=== PATIENT | female | born 1985 | race Caucasian/White ===

== ENCOUNTER 2021-03-11 11:38 | Emergency (ER) | payer MEDICAID, SELFPAY ==
[2021-03-11 11:39] VITALS: BP 126/84; PULSE 87; RESP 18; TEMP 36.9; O2SAT 97; BMI 31.6
--- NOTE | 2021-03-11 12:07 | CT_ITS ---
STUDY: CT SOFT TISSUE NECK WITH CONTRAST REASON FOR EXAM: Female, 35 years old. Post op pain -- and quot;lump in throat and quot; s/p partial thyroidectomy RADIATION DOSAGE (If Supplied By Facility): CTDIvol = ( 16.60 ) mGy, DLP = ( 543.36 ) mGycm TECHNIQUE: The patient was scanned in a multi-detector CT scanner. High resolution transaxial imaging was performed following intravenous administration of IV 75mL Isovue-370. Sagittal and coronal images were reconstructed. Individualized dose optimization techniques were used for this CT. COMPARISON: None. FINDINGS: Normal bilateral parotid glands. Normal bilateral internetworking technician spaces. Normal bilateral parapharyngeal spaces. Normal bilateral carotid spaces. Normal bilateral sublingual and submandibular glands and spaces. Normal visualized nasopharynx. Normal retropharyngeal space. Normal perivertebral space. Normal visualized bilateral faucial tonsils. The visualized tongue, tongue base and oropharynx are normal. The visualized cervical lymph nodes (levels I-) are within normal size limits, and maintain normal morphology. There is no demonstrated solid or cystic mass lesion. There is no abnormal contrast enhancement. Normal epiglottis, bilateral vallecula and hypopharynx. The pre-epiglottic and paraglottic adipose spaces are normal. Normal visualized bilateral piriform sinuses, aryepiglottic folds, vocal cords, and arytenoid-cricoid articulations. Normal subglottic trachea. The patient is status post resection of the right lobe of the thyroid gland. The left lobe and the left side of the isthmus is unremarkable. Minimal residual postoperative soft tissue changes in the subcutaneous tissues. No evidence of a abnormal fluid collection. A small amount of air is seen within the bilateral tonsils. This may represent an incidental finding Normal visualized pulmonary apices. Normal visualized paranasal sinuses. Normal visualized cervical spine. CT/Soft Tissue Neck WITH Contrast IMPRESSION: No postoperative complication is seen. Electronically Signed: Mario Callahan MD at 13:12 EST , Service support ,
--- NOTE | 2021-03-11 12:13 | EX.ED.DYSGE1 ---
HPI History of Present Illness Chief Complaint: General Illness Informant: patient Onset/Context/Timing Onset: Days (3 days) Context: Gradual Onset Current Severity: Mild Maximum Severity: Mild Narrative Narrative: Patient presents secondary to cough and sensation of lump in her throat. She had a partial thyroidectomy on February 18. She states she has a sensation of lump in her throat that seems to come and go. She is not sure if it is related to her surgery. She had subjective fever 1 night recently and has had cough with no sputum production. Patient advises me that one member of her home did test positive for Covid this morning. PFSH PFSH Medical History no medical history no medical history Home Medications vitamin B complex [B Complex] 1 cap PO DAILY 03/11/21 [History Last Taken Unknown] zinc 15 mg PO DAILY 03/11/21 [History Last Taken Unknown] Allergy/AdvReac Type Severity Reaction Status Date / Time acetaminophen [From Vicodin] Allergy Nausea Verified 03/11/21 11:51 cefdinir Allergy Nausea Verified 03/11/21 11:51 hydrocodone [From Vicodin] Allergy Nausea Verified 03/11/21 11:51 Surgical History History of partial thyroidectomy Social History Smoking Status: Never smoker ROS ROS ED Constitutional Constitutional ED: Reports fever(s) and subjective; Denies chills Eyes Eyes: Denies change in vision ENT ENT ED: Reports other Details: Lump in throat ; Denies sore throat Cardiovascular Cardiovascular: Denies chest pain Respiratory/Chest Respiratory/Chest: Reports cough; Denies dyspnea or sputum Gastrointestinal Gastrointestinal: Denies abdominal pain, diarrhea, nausea or vomiting Genitourinary Genitourinary ED: Denies dysuria Musculoskeletal Musculoskeletal: Reports myalgias; Denies back pain Integumentary Denies rash Neurologic Neurologic: Denies headache(s) or weakness Allergic/Immunologic Allergic/Immunologic ED: Denies urticaria EXAM Physical Exam Const Vital Signs: 03/11/21 11:39 03/11/21 11:53 Temperature 98.4 F Temperature Source Temporal Pulse Rate 87 Respiratory Rate 18 Respiratory Effort Normal Non-Labored Respiratory Pattern Normal Blood Pressure 126/84 H Blood Pressure Mean 98 Pulse Ox 97 Oxygen Delivery Method Room Air Positive well nourished and well developed General Appearance ED: well developed HEENT Reports moist mucous membranes Eyes PERRL and EOMs intact bilaterally Neck supple Chest Wall inspection of chest normal and palpation of chest normal Resp normal respiratory effort and clear to auscultation bilaterally Cardio regular rate and regular rhythm GI normal to inspection, nondistended, normoactive bowel sounds and non-tender Palpation: soft Extremity normal to inspection Neuro oriented x3 Sensorium / Orientation: alert Psych mental status grossly normal Skin no rashes or lesions noted MDM MDM MDM Narrative Medical decision making narrative: Patient had a BMP obtained and a CT neck with IV contrast secondary to her postop pain. Rapid Covid test and chest x-ray ordered. Lab Data Attestation: I reviewed the patient's lab results. Labs: Laboratory Results - last 24 hr 03/11/21 12:35 Sodium 138 Potassium 4.0 Chloride 108 H Carbon Dioxide 26.0 Anion Gap 4 L BUN 12 Creatinine 0.78 Estim Creat Clear Calc 89.72 Est GFR (MDRD) Af Amer 108 Est GFR (MDRD) Non-Af 89 BUN/Creatinine Ratio 15.5 Glucose 91 Calcium 9.0 Rapid Covid: Positive Radiography Chest X-Ray - ED: 1 View, Read by ED Physician, Normal, Heart, Lungs and Mediastinum Diagnostic Testing: Clinical Impression(s) from Imaging Studies Soft Tissue Neck CT 03/11/21 12:07 IMPRESSION: No postoperative complication is seen. Electronically Signed: Mario Callahan MD at 13:12 EST , Service support , Chest X-Ray 03/11/21 13:06 IMPRESSION: Normal x-ray examination of the chest. Electronically Signed: Mario Callahan MD at 13:33 EST , Service support , Treatment and Re-Evaluation Comments:: CT scan of the neck reveals no postoperative complications. Chest x-ray is clear per my interpretation. Covid test is positive. I did discuss with the patient potentially obtaining monoclonal antibody treatment. I did confirm that monoclonal antibody treatment is safe while breast-feeding. Monoclonal's will be ordered for the patient. The following information was communicated to the patient or caregiver: Monoclonal antibody infusion is not an FDA approved drug. The FDA has authorized the emergency use of monoclonal antibody therapy. The patient had the option to refuse or accept treatment with monoclonal antibody therapy. The patient was informed that the number of people treated with monoclonal antibody therapy at this time is small. The potential benefits and the potential risks of monoclonal antibody therapy are not fully known. Potential benefits of monoclonal antibody include a reduced risk of progressing to severe COVID-19 infection. Potential risks or side effects of monoclonal antibody therapy include allergic reactions, side effects from injection including brief pain, bleeding, bruising of the skin, soreness, swelling, possible infection at the infusion site. The patient stated understanding of this information communicated and wished to proceed with monoclonal antibody infusion therapy. The patient is appropriate for the Monoclonal Antibody Infusion. The patient states understanding of this information communicated and wishes to proceed with monoclonal antibody infusion therapy. Patient agrees to receive either Balanivimab/Etesvimab or Casirivimab/Imdevimab upon availability. Discharge Plan Triage Chief Complaint: General Illness ED Provider: Michelle Severino Dx/Rx/DC Orders Clinical Impression: COVID-19 Instructions: Coronavirus Disease 2019 (COVID-19): Overview, Coronavirus Disease 2019 (COVID-19): Caring for Yourself or Others Prescriptions: No Action zinc 15 mg Tablet 15 mg PO DAILY RF: 0 vitamin B complex [B Complex] Capsule 1 cap PO DAILY RF: 0 Stand Alone Forms: Monoclonal Antibody Referral Primary Care Provider: Care Physician,No Primary Referrals: Ashly Anne MD [STAFF PHYSICIAN] - As Needed Care Physician,No Primary [Primary Care Provider] - Disposition Disposition: Home, Self Care
[2021-03-11 12:59] LABS: Anion Gap 4 (5-15); BUN 12 mg/dL (7-18); BUN/Creat Ratio 15.5 RATIO (10-20); Chloride 108 mmol/L (98-107); Creatinine, Serum 0.78 mg/dL (0.55-1.02); EST Glomerular Filtration Rate 89 mL/min (>60); Est Glom Filt Rate - Afr Amer 108 mL/min (>60); Estimated Creatinine Clearance 89.72 ml/min; Glucose 91 mg/dL (74-106); Sodium Level 138 mmol/L (136-145)
--- NOTE | 2021-03-11 13:06 | RAD_ITS ---
STUDY: X-RAY CHEST REASON FOR EXAM: Female, 35 years old. Several day history of cough. TECHNIQUE: Single AP portable view of the chest. COMPARISON: None. FINDINGS: The lungs are clear and expanded. There is no demonstrated pleural abnormality. Normal size heart. Normal mediastinum and kishan. Normal visualized pulmonary arteries. Normal visualized aortic arch and descending thoracic aorta. Normal visualized thoracic spine. Normal visualized ribs, clavicles, and shoulders. There is no demonstrated abnormality of the visualized soft tissue structures of the upper abdomen. RAD/Chest 1 View (Portable) IMPRESSION: Normal x-ray examination of the chest. Electronically Signed: Mario Callahan MD at 13:33 EST , Service support ,
--- NOTE | 2021-03-11 13:55 | CM.ED ---
SW Note: Referral Source: Case Find Referral Source: No PCP SW reviewed chart. Patient has no PCP. SW provided patient with list of PCP provider. made referral for PCP for patient. No further SW needs at this time. Plan: PCP list provider Eleni W[place]
== END 2021-03-11 14:00 | disposition home or self-care (01) ==
PROVIDERS: Emergency Provider Emergency Medicine
DX: U07.1 COVID-19 (principal)
CPT/HCPCS: 70491; 71045; 80048; 87426; 99283; Q9967; A4216

== ENCOUNTER 2021-03-17 19:31 | Emergency (ER) | payer MEDICAID, SELFPAY ==
[2021-03-17 19:32] VITALS: BP 146/89; PULSE 106; RESP 16; TEMP 36.6; O2SAT 97; BMI 31.6
--- NOTE | 2021-03-17 21:24 | CT_ITS ---
STUDY: CT SOFT TISSUE NECK WITH CONTRAST REASON FOR EXAM: Female, 35 years old. PT THYROIDECTOMY ON 02-18, INCREASED BP, COVID +, VERY ANXIOUS, C/O SWELLING NOW AND BEING COLD SINCE SX RADIATION DOSAGE (If Supplied By Facility): CTDIvol = ( 16.15 ) mGy, DLP = ( 468.06 ) mGycm TECHNIQUE: The patient was scanned in a multi-detector CT scanner. High resolution transaxial imaging was performed following intravenous administration of IV 100mL Isovue-370. Sagittal and coronal images were reconstructed. Individualized dose optimization techniques were used for this CT. COMPARISON: CT of the soft tissues of the neck dated March 11, 2021 FINDINGS: No soft tissue abscess is present. Normal bilateral parotid glands. Normal bilateral senior gl accountant spaces. Normal bilateral parapharyngeal spaces. Normal bilateral carotid spaces. Normal bilateral sublingual and submandibular glands and spaces. Normal visualized nasopharynx. Normal retropharyngeal space. Normal perivertebral space. Normal visualized bilateral faucial tonsils. The visualized tongue, tongue base and oropharynx are normal. The visualized cervical lymph nodes (levels I-) are within normal size limits, and maintain normal morphology. There is no demonstrated solid or cystic mass lesion. There is no abnormal contrast enhancement. Normal epiglottis, bilateral vallecula and hypopharynx. The pre-epiglottic and paraglottic adipose spaces are normal. Normal visualized bilateral piriform sinuses, aryepiglottic folds, vocal cords, and arytenoid-cricoid articulations. Normal subglottic trachea. Prior right thyroidectomy. Normal left lobe of the thyroid gland. No fluid or air or swelling is seen in the right thyroid bed. Minimal subcutaneous edema is present in the soft tissues over the thyroidectomy bed, as well as postsurgical scarring. Normal visualized pulmonary apices. Normal visualized paranasal sinuses. Normal visualized cervical spine. CT/Soft Tissue Neck WITH Contrast IMPRESSION: 1. Prior right thyroidectomy. Normal left lobe of the thyroid gland. No fluid or air or swelling is seen in the right thyroid bed. Minimal subcutaneous edema is present in the soft tissues over the thyroidectomy bed, as well as postsurgical scarring. 2. No abscess of the neck. Electronically Signed: Brock Carvajal MD at 22:42 EST , Service support ,
--- NOTE | 2021-03-17 21:28 | EDS_ITS ---
HPI History of Present Illness Chief Complaint: Wound Check Informant: patient Onset/Context/Timing Onset: Weeks (1) Context: Gradual Onset Timing: Waxes and wanes Quality: Shooting, electric shock Location: Neck Worsened by: Nothing Relieved by: Nothing Narrative Narrative: Patient presents with swelling around her incision that has been waxing and waning over the past week. Patient states it has been been worse last night but it is better tonight. Patient states she has some pain over this area. Patient states it is shooting and feels like an electric shock. Patient denies any redness. Patient denies any fevers or chills. Patient admits to some nausea but denies any vomiting. Patient denies any chest pain or shortness of breath. Patient states nothing makes her symptoms worse and nothing makes them better. Patient states her surgery was only a partial thyroidectomy and was done in [place] by Dr. Raman. [facility] Home Medications vitamin B complex [B Complex] 1 cap PO DAILY 03/11/21 [History Last Taken Unknown] zinc 15 mg PO DAILY 03/11/21 [History Last Taken Unknown] Allergy/AdvReac Type Severity Reaction Status Date / Time acetaminophen [From Vicodin] Allergy Nausea Verified 03/17/21 19:35 cefdinir Allergy Nausea Verified 03/17/21 19:35 hydrocodone [From Vicodin] Allergy Nausea Verified 03/17/21 19:35 Surgical History History of partial thyroidectomy Social History Smoking Status: Never smoker ROS ROS ED Constitutional Constitutional ED: Denies chills or fever(s) Eyes Eyes: Denies blurry vision or change in vision ENT ENT ED: Denies rhinorrhea or sore throat Cardiovascular Cardiovascular: Denies chest pain or palpitations Respiratory/Chest Respiratory/Chest: Denies cough or dyspnea Gastrointestinal Gastrointestinal: Reports nausea; Denies vomiting Genitourinary Genitourinary ED: Denies dysuria or hematuria Musculoskeletal Musculoskeletal: Reports neck pain; Denies back pain Integumentary Reports rash; Denies abscess Neurologic Neurologic: Denies headache(s) or weakness Allergic/Immunologic Allergic/Immunologic ED: Denies mouth swelling or urticaria EXAM Physical Exam Const Vital Signs: 03/17/21 19:32 03/17/21 21:50 Temperature 97.9 F Temperature Source Temporal Pulse Rate 106 H Respiratory Rate 16 18 Blood Pressure 146/89 H Blood Pressure Mean 108 Pulse Ox 97 Oxygen Delivery Method Room Air Positive well nourished and well developed General Appearance ED: well developed HEENT Reports moist mucous membranes Neck supple and no JVD Neck Narrative: The incision is healing well. There is no erythema or warmth. There is no tenderness. Resp normal respiratory effort and clear to auscultation bilaterally Cardio regular rate, regular rhythm and no murmurs GI normal to inspection, nondistended, normoactive bowel sounds and non-tender Palpation: soft Extremity normal to inspection General Extremety ED: Negative for edema or tenderness General Extremity: Negative for edema Neuro oriented x3, CN's II-XII intact bilaterally and no sensory deficits noted Sensorium / Orientation: alert Motor Exam: strength 5/5 throughout Psych mental status grossly normal Skin no rashes or lesions noted MDM MDM MDM Narrative Medical decision making narrative: CBC shows a mild leukocytosis of 15.0. Comprehensive metabolic profile was within normal limits. TSH was normal. CT scan of the soft tissue neck was obtained. There is no acute abnormality noted. There is no abscess. This was interpreted by the radiologist and reviewed by myself. Patient was advised of her findings. Patient did have a recent positive COVID-19 test on 03/11. Patient was advised that her symptoms may be related to that. Patient understands and is agreeable with the plan. Patient was instructed to follow-up with her primary care physician and surgeon in 5 to 7 days. All questions were answered. Lab Data Attestation: I reviewed the patient's lab results. Labs: Laboratory Results - last 24 hr 03/17/21 03/17/21 21:38 21:38 WBC 15.0 H RBC 4.79 Hgb 13.8 Hct 41.7 MCV 87.1 MCH 28.8 MCHC 33.1 RDW Std Deviation 40.5 RDW Coeff of Tammi 12.8 Plt Count 394 MPV 11.2 Immature Gran % (Auto) 0.500 Neut % (Auto) 65.8 Lymph % (Auto) 27.0 [place] % (Auto) 4.5 Eos % (Auto) 1.5 Baso % (Auto) 0.7 Absolute Neuts (auto) 9.8 H Absolute Lymphs (auto) 4.04 Nucleated RBC % 0 Sodium 139 Potassium 4.1 Chloride 108 H Carbon Dioxide 27.0 Anion Gap 4 L BUN 15 Creatinine 1.02 Estim Creat Clear Calc 68.61 Est GFR (MDRD) Af Amer 79 Est GFR (MDRD) Non-Af 65 BUN/Creatinine Ratio 14.7 Glucose 92 Calcium 9.2 Total Bilirubin 0.40 AST 37 ALT 27 Alkaline Phosphatase 78 Total Protein 8.1 Albumin 3.7 Globulin 4.4 H Albumin/Globulin Ratio 0.8 L TSH 1.59 Radiography Diagnostic Testing: Clinical Impression(s) from Imaging Studies Soft Tissue Neck CT 03/17/21 21:24 IMPRESSION: 1. Prior right thyroidectomy. Normal left lobe of the thyroid gland. No fluid or air or swelling is seen in the right thyroid bed. Minimal subcutaneous edema is present in the soft tissues over the thyroidectomy bed, as well as postsurgical scarring. 2. No abscess of the neck. Electronically Signed: Brock Carvajal MD at 22:42 EST , Service support , Discharge Plan Triage Chief Complaint: Wound Check ED Provider: Wesley Leal Dx/Rx/DC Orders Clinical Impression: Encounter for postoperative wound check, COVID-19 Instructions: Coronavirus Disease 2019 (COVID-19): Caring for Yourself or Others, ED Post Op Wound Check, General Prescriptions: No Action zinc 15 mg Tablet 15 mg PO DAILY RF: 0 vitamin B complex [B Complex] Capsule 1 cap PO DAILY RF: 0 Primary Care Provider: [facility] Doctor,Out of Referrals: [facility] Doctor,Out of [Primary Care Provider] - 5-7 Days Disposition Disposition: Home, Self Care
[2021-03-17 21:49] LABS: Absolute Lymphocyte Count 4.04 X10^3/uL (0.83-4.51); Absolute Neutrophil Count 9.8 X10^3/uL (2.0-7.7); Basophil# 0.11 X10^3/uL; Basophil% 0.7 % (0-1); Eosinophil# 0.23 X10^3/uL; Eosinophils% 1.5 % (0-5); Hematocrit 41.7 % (37-47); Hemoglobin 13.8 g/dL (12.0-15.0); Lymphocyte # 4.04 X10^3/ul (0.83-4.51); Mean Corp Hgb Conc 33.1 g/dL (32-36); Mean Corpuscular Hgb 28.8 pg (27.0-32.0); Mean Corpuscular Volume 87.1 fL (81-99); Mean Platelet Vol. 11.2 fl (6.2-12.0); Monocyte# 0.68 X10^3/uL; Monocyte% 4.5 % (0-10); NRBC Flagged by Analyzer 0 % (0-5); Neutrophil # 9.83 X10^3/uL (2.7-7.7); Neutrophil % 65.8 % (47-70); Platelet Count 394 K/mm3 (150-450); RBC Distribution Width CV 12.8 % (11.6-14.6); RBC Distribution Width SD 40.5 fl (35.1-43.9); Red Blood Count 4.79 M/mm3 (4.2-5.4)
[2021-03-17 21:50] VITALS: RESP 18
[2021-03-17 22:20] LABS: ALB/GLOB Ratio 0.8 RATIO (0.9-2.4); AST(SGOT) 37 U/L (15-37); Alanine Aminotransfer ALT/SGPT 27 U/L (13-56); Albumin, Serum 3.7 g/dL (3.2-5.0); Alkaline Phosphatase 78 U/L (45-117); Anion Gap 4 (5-15); BUN 15 mg/dL (7-18); BUN/Creat Ratio 14.7 RATIO (10-20); Calcium,Total 9.2 mg/dL (8.5-10.1); Chloride 108 mmol/L (98-107); Creatinine, Serum 1.02 mg/dL (0.55-1.02); EST Glomerular Filtration Rate 65 mL/min (>60); Est Glom Filt Rate - Afr Amer 79 mL/min (>60); Estimated Creatinine Clearance 68.61 ml/min; Globulin 4.4 g/dL (2.2-4.2); Glucose 92 mg/dL (74-106); Potassium 4.1 mmol/L (3.5-5.1); Protein, Total 8.1 g/dL (6.4-8.2); Sodium Level 139 mmol/L (136-145); Thyroid Stim Hormone (TSH) 1.59 uIU/mL (0.358-3.74)
[2021-03-17 23:22] VITALS: PULSE 80; RESP 18; O2SAT 98
== END 2021-03-17 23:22 | disposition home or self-care (01) ==
PROVIDERS: Emergency Provider Emergency Medicine
DX: M54.2 Cervicalgia (principal); U07.1 COVID-19; Z98.890 Other specified postprocedural states; Z48.00 Encounter for change or removal of nonsurgical wound dressing
CPT/HCPCS: 70491; 80053; 84443; 85025; 96360; 96361; 99282; J7030; Q9967; A4216